=== PATIENT | male | born 1970 | race Caucasian/White ===

== ENCOUNTER 2021-11-28 05:29 | Day surgery (SDC) | payer BC ==
[~2021-11-28] VITALS: Ht 170.2 cm; Wt 103.0 kg
[2021-11-28] MEDS ORDERED: PRINIVIL10 MG (05:59)
[2021-11-28] MEDS ORDERED: CENTRUM SILVER1 CTB PO (06:00)
[2021-11-28] MEDS ORDERED: MOTRIN 800800 MG/TAB PO (06:00)
[2021-11-28 06:12] VITALS: BP 156/87; PULSE 66; TEMP 97.8
--- NOTE | 2021-11-28 10:15 | NUR ---
Pt. to the floor from PACU. Pt. is A&OX3, assessment complete. IV to lt. forearm patent. Dressing to rt. knee CDI. Pt. denies pain at this time.
[2021-11-28 12:00] VITALS: BP 130/69; PULSE 88; TEMP 97.9
--- NOTE | 2021-11-28 12:00 | NUR ---
Pt. to the floor from PACU. Pt. is A&OX3, assessment complete. INT to lt. hand patent. Dressing to rt. knee CDI. Pt. denies pain or other needs.
[2021-11-28 13:10] VITALS: BP 120/46; PULSE 64; TEMP 98.1
--- NOTE | 2021-11-28 13:10 | NUR ---
Pt. reports feeling well. pt. has ambulated, and tolerating PO. EMY Aragon notified of Pt.'s wishes to discharge. New orders revieved.
[2021-11-28] MEDS ORDERED: NORCO 325 MG-51 TAB PO (13:45)
[2021-11-28] MEDS ORDERED: ASPIRIN 81M81 MG/TA2 PO (13:45)
[2021-11-28] MEDS ORDERED: CEPHALEXIN500 M1 PO (13:45)
--- NOTE | 2021-11-28 15:00 | NUR ---
Pt. has met discharge criteria. Discharge orders noted. Reviewed health summary, discharge instructions, new meds, and home med rec with the pt. Pt. voices understanding. INT discontinued from lt. hand. Pt. escorted out by VICE PRESIDENT [employer]ELOP[employer].
== END 2021-11-28 15:00 | disposition home or self-care (01) ==
LOC: SDCO 05:29 → SURG 10:01 → SDCO 15:00
DX: M17.11 Unilateral primary osteoarthritis, right knee (principal); F17.200 Nicotine dependence, unspecified, uncomplicated; G89.18 Other acute postprocedural pain
CPT/HCPCS: OP; C1713; C1776; J0690; J1100; J1580; J1885; J2250; J2270; J2370; J2405; J2704; J2795; J3010; J7120

== ENCOUNTER → 2023-10-21 | Outpatient (CLI) | payer BC ==
[~2023-10-21] MED LIST: ASPIRIN 81M81 MG/TA2 PO; CENTRUM SILVER1 CTB PO; CEPHALEXIN500 M1 PO; MOTRIN 800800 MG/TAB PO; NORCO 325 MG-51 TAB PO; PRINIVIL10 MG
== END ==
LOC: COL.RAD 12:50
DX: F17.200 Nicotine dependence, unspecified, uncomplicated (principal)